=== PATIENT | male | born 1985 | race Caucasian/White ===

== ENCOUNTER 2017-01-11 09:24 | Emergency (ER) | payer OTHER ==
--- NOTE | 2017-01-11 09:43 | UCPHY ---
H & P Time Seen by Provider: 01/11/17 09:40 Patient Type: Established HPI/ROS: This patient has a sore throat that started over the past 24 hours. He was just exposed to for nieces to or diagnosed with strep this past week. He reports the sore throat is moderate intensity with no exacerbating factors. He reports that he is a carrier of strep in the past as well. ROS: No high fevers or chills. No other constitutional symptoms. HEENT: No nasal congestion. No ear pain lungs: No cough. GI: No vomiting. Integumentary: No skin rash. 5 point ROS is otherwise negative. Social History: Exposed to strep this past week as noted Smoking Status: Never smoked Physical Exam: Physical Exam Vital signs are normal. General: No acute distress HEENT: Nose: Clear oropharynx: Patient has mild tonsillar erythema, swelling and exudate left more than right. No dysphonia. No drooling or stridor Eyes: Pupils equal and react to light. Extraocular motions are intact. Lungs: Clear to auscultation bilaterally. No respiratory distress. Cardiac: Regular rate and rhythm with no murmur gallop or rub Skin: No rash or pallor. Neuro: Alert with no sensorimotor deficits. Allergies/Adverse Reactions: No Known Allergies Allergy (Unverified 02/01/16 14:29) Home Medications: Medication Instructions Recorded Sertraline HCl [Zoloft 100mg (RX)] 100 mg PO DAILY 11/17/14 Amoxicillin Trihydrate [Amoxil] 500 mg PO Q12H 10 Days 05/13/16 Hydrocodone/APAP 5/325 [[place] 1 - 2 tab PO Q4 PRN #15 tab 05/13/16 5/325] Penicillin V Potassium [Penicillin 500 mg PO BID #20 01/11/17 VK] MDM/Departure - Depart Disposition: Home, Routine, Self-Care Clinical Impression: Tonsillitis with exudate Condition: Good Instructions: Tonsillitis (ED) Additional Instructions: Diagnosis: Exudate of tonsillitis Plan: Penicillin antibiotic Ibuprofen and Tylenol as needed for pain Return for any significant worsening despite the treatment plan Prescriptions: Penicillin V Potassium [Penicillin VK] 500 mg PO BID #20 Referrals: Derick William MD [Primary Care Provider] - As per Instructions - PQRS PQRS Measurement: NA
[2017-01-11 09:49] VITALS: BP 153/88; PULSE 85; RESP 16; TEMP 99.1; O2SAT 96
== END 2017-01-11 09:49 | disposition home or self-care (01) ==
LOC: CED 09:24
DX: J03.90 Acute tonsillitis, unspecified (principal)
CPT/HCPCS: 99214-PO; G0463-PO